=== PATIENT | female | born 1940 | race Hispanic/Latino ===

== ENCOUNTER 2016-11-23 12:59 | Emergency (ER) | payer MEDICARE ==
--- NOTE | 2016-11-23 13:56 | RAD ---
PROCEDURE: Right middle finger radiographs. HISTORY: r/o fx COMPARISON: None. TECHNIQUE: AP radiograph of the right hand, as well as spot oblique and lateral images of right middle finger were obtained. FINDINGS: RIGHT MIDDLE FINGER: No fracture seen. . No dislocation Arthropathic changes of the metacarpal all interphalangeal joints are noted the interphalangeal joints are see hypertrophic as pronounced 2nd 3rd 4th proximal interphalangeal joints and 1st interphalangeal joint No gross erosions seen. JOINTS: As above SOFT TISSUES: Normal. OTHER FINDINGS: None. IMPRESSION: No fracture. Hypertrophic arthrosis
--- NOTE | 2016-11-23 15:59 | C.PDOC ---
History Of Present Illness 76 y/o female with Hx of advanced osteoarthritis presents to ED with complaints of right middle finger pain. Patient states after folding a comforter she heard a snap in her finger. Patient denies direct trauma, numbness or any other complaints at this time. Patient is right hand dominant. Time Seen by Provider: 11/23/16 13:10 Chief Complaint (Nursing): Upper Extremity Problem/Injury History Per: Patient History/Exam Limitations: no limitations Onset/Duration Of Symptoms: Days Current Symptoms Are (Timing): Still Present Past Medical History Reviewed: Historical Data, Nursing Documentation, Vital Signs Vital Signs: Last Vital Signs Temp 98.2 F 11/23/16 16:54 Pulse 69 11/23/16 16:54 Resp 18 11/23/16 16:54 BP 134/75 11/23/16 16:54 Pulse Ox 98 11/23/16 18:30 - Medical History PMH: Gastritis, HTN, Hypercholesterolemia, Hypothyroidism Family History: States: No Known Family Hx - Social History Hx Alcohol Use: No Hx Substance Use: No - Immunization History Hx Tetanus Toxoid Vaccination: Yes Hx Influenza Vaccination: Yes Hx Pneumococcal Vaccination: Yes Review Of Systems Except As Marked, All Systems Reviewed And Found Negative. Constitutional: Negative for: Fever, Chills Musculoskeletal: Positive for: Other (Hand pain) Skin: Negative for: Rash Neurological: Negative for: Weakness, Numbness Physical Exam - Physical Exam Appears: Non-toxic, No Acute Distress Skin: Normal Color, Warm Oral Mucosa: Moist Cardiovascular: Rhythm Regular, No Murmur Respiratory: Normal Breath Sounds, No Rales, No Rhonchi, No Wheezing Extremity: Tenderness (To proximal aspect to 3rd digit on right hand), Capillary Refill (<2 seconds), Other (Both hands chronic changes in all joints secondary to arthritis) Neurological/Psych: Oriented x3, Normal Motor, Normal Sensation, Normal Reflexes ED Course And Treatment O2 Sat by Pulse Oximetry: 98 (RA) Pulse Ox Interpretation: Normal Progress Note: Patient was given a hand splint but she refused to wear it, patietn was asking for a finger splint. Disposition - Disposition Referrals: Clinic,Med Surg [Primary Care Provider] - Disposition: HOME/ ROUTINE Disposition Time: 16:15 Condition: GOOD Additional Instructions: Thank you for letting us take care of you today. Your provider was Dr. Menjivar. You were treated for an injured hand. The emergency medical care you received today was directed at your acute symptoms. If you were prescribed any medication, please fill it and take as directed. It may take several days for your symptoms to resolve. Return to the Emergency Department if your symptoms worsen, do not improve, or if you have any other problems. Please contact your doctor or call one of the physicians/clinics you have been referred to that are listed on the Patient Visit Information form that is included in your discharge packet. Bring any paperwork you were given at discharge with you along with any medications you are taking to your follow up visit. Our treatment cannot replace ongoing medical care by a primary care provider (PCP) outside of the emergency department. [facility] care today. Follow up with your doctor in 3-4 days for re-evaluation of your hand. Prescriptions: Ibuprofen [Motrin] 600 mg PO Q6 PRN #20 tab PRN Reason: Pain, Moderate (4-7) Instructions: Arthritis (ED) - Clinical Impression Clinical Impression: Arthritis - Scribe Statement The provider has reviewed the documentation as recorded by the Deanibrochelle Heath All medical record entries made by the Deanibrochelle were at my direction and personally dictated by me. I have reviewed the chart and agree that the record accurately reflects my personal performance of the history, physical exam, medical decision making, and the department course for this patient. I have also personally directed, reviewed, and agree with the discharge instructions and disposition.
[2016-11-23 16:55] VITALS: BP 134/75; PULSE 69; RESP 18; TEMP 98.2
[2016-11-23 18:30] VITALS: O2SAT 98
--- NOTE | 2016-11-24 09:31 | CT ---
PROCEDURE: CT right hand HISTORY: follow up to x-ray - 3rd finger - unable to move COMPARISON: Not available TECHNIQUE: 1.25 mm contiguous axial sections were acquired through the right hand. Sagittal and coronal images were reformatted from the axial images. No intravenous contrast was administered for this examination. Total exam DLP: 178.63 mGy-cm FINDINGS: There is no evidence of fracture. There is no lytic or blastic osseous lesion. There is osteoarthritis of the 1st through 5th distal interphalangeal joints. Joint space narrowing and marginal osteophyte production is noted about all of these affected joints. There is osteoarthritis of the 2nd metacarpal phalangeal joint. There is osteoarthritis of the 3rd metacarpal phalangeal joint. There is mild flexion deformity at 3rd metacarpal phalangeal joint. There is mild osteoarthritis of the 3rd proximal interphalangeal joint. There is osteoarthritis of the 5th proximal interphalangeal joint. The carpal metacarpal articulations are preserved. Intercarpal articulations are preserved. Normal carpal alignment is maintained. The scapholunate interval is normal. The radiocarpal articulation is unremarkable. There is no soft tissue abnormality appreciated. IMPRESSION: Osteoarthritis of multiple articulations with mild flexion deformity and osteoarthritis at the 3rd metacarpal phalangeal articulation. No articular erosions. No osseous fracture. No soft tissue abnormality. Preliminary interpretation of this examination was reported by [facility] at 4:06 p.m. on 11/23/2016. There is concurrence of this report with the preliminary interpretation.
== END 2016-11-23 17:08 | disposition home or self-care (01) ==
LOC: SUPCPDRO 12:59 → C.ER 12:59
DX: M13.842 Other specified arthritis, left hand (principal); M13.841 Other specified arthritis, right hand
CPT/HCPCS: 73140; 73200; 96372; 99285; J1885